=== PATIENT | female | born 1975 | race Caucasian/White ===

== ENCOUNTER → 2017-05-01 | Outpatient (CLI) | payer OTHER ==
[~2017-05-01] MED LIST: HYDR-3150 PO; NIFE60TA2 PO; PREN1TAB52 PO
== END | disposition home or self-care (01) ==
LOC: CFH 13:34
PROVIDERS: ATTEND Specialist
DX: Z12.31 Encounter for screening mammogram for malignant neoplasm of breast (principal)
CPT/HCPCS: G0202

== ENCOUNTER 2019-11-15 10:55 | Emergency (ER) | payer BC, OTHER ==
[~2019-11-15] VITALS: Ht 165.1 cm; Wt 110.9 kg
--- NOTE | 2019-11-15 11:22 | NUR ---
PT HERE WITH C/O "HOT PEE" AND LEFT LOWER BACK PAIN WITH ABDOMINAL CRAMPING. PT AAO X 4, NAD, ROOM AIR. CALL LIGHT WITHIN REACH, SIDERAIL X [address] PT DRESSED IN GOWN AND ATTACHED TO MONITOR. URINE SAMPLE SENT TO LAB.
[2019-11-15 11:29] VITALS: BP 137/69
[2019-11-15 11:32] LABS: BASOPHILS # (AUTO) 0.05 x10^3/uL (0-0.1); BASOPHILS % (AUTO) 1 % (0-1); EOSINOPHILS # (AUTO) 0.09 x10^3/uL (0-0.4); EOSINOPHILS % (AUTO) 1 % (1-7); LYMPHOCYTES # (AUTO) 0.73 x10^3/uL (1-3.4); LYMPHOCYTES % (AUTO) 7 % (22-44); MD NO; MEAN CORPUSCULAR HEMOGLOBIN 30.7 pg (27.0-34.8); MEAN CORPUSCULAR HGB CONC 33.5 g/dL (32.4-35.8); MEAN CORPUSCULAR VOLUME 91.7 fL (80-100); MEAN PLATELET VOLUME 9.4 fL (7.4-10.4); MONOCYTES # (AUTO) 0.49 x10^3/uL (0.2-0.8); MONOCYTES % (AUTO) 5 % (2-9); NEUTROPHILS # (AUTO) 8.76 x10^3/uL (1.8-6.8); NEUTROPHILS % (AUTO) 87 % (42-75); PLATELET COUNT 196 x10^3/uL (130-400); RED BLOOD COUNT 4.97 x10^6/uL (3.82-5.3); RED CELL DISTRIBUTION WIDTH 13.9 % (9.6-15.2)
[2019-11-15 11:40] LABS: ALBUMIN 3.6 g/dL (3.4-5.0); ANION GAP 8 mmol/L (5-15); CALCIUM 8.7 mg/dL (8.5-10.1); CHLORIDE 110 mmol/L (98-107); CREATININE 1.48 mg/dL (0.55-1.02)
[2019-11-15 11:54] LABS: MICROSCOPIC INDICATED
[2019-11-15] MEDS ORDERED: KETOROLAC 30 MG/1 ML ONE (12:08)
--- NOTE | 2019-11-15 12:13 | NUR ---
PT MEDICATED PER ORDERS.
--- NOTE | 2019-11-15 12:17 | NUR ---
US AT BEDSIDE.
[2019-11-15 12:23] LABS: CULTURE INDICATED? NO
[2019-11-15] MEDS ORDERED: KETOROLAC 30 MG/1 ML IM ONE (12:30)
--- NOTE | 2019-11-15 12:59 | NUR ---
ALL RESULTS BACK AT THIS TIME, CHART UP FOR RECHECK.
--- NOTE | 2019-11-15 13:33 | NUR ---
AT BEDSIDE FOR REASSESSMENT.
--- NOTE | 2019-11-15 13:51 | NUR ---
Patient/Caregiver given discharge instructions and they have confirmed that they understand the instructions. Patient ambulatory with steady gait.
== END 2019-11-15 14:09 | disposition home or self-care (01) ==
LOC: ED 13:08
DX: N13.2 Hydronephrosis with renal and ureteral calculous obstruction (principal)
CPT/HCPCS: 36415; 76770; 80048; 81001; 82040; 84703; 85025; 96372; 99284; J1885

== ENCOUNTER → 2020-04-05 | Outpatient (CLI) | payer OTHER | END | disposition home or self-care (01) | LOC: CFH 14:31 | PROVIDERS: ATTEND Specialist | DX: Z12.31 Encounter for screening mammogram for malignant neoplasm of breast (principal) | CPT/HCPCS: 77063; 77067 ==